=== PATIENT | female | born 1975 | race Caucasian/White ===

== ENCOUNTER 2025-01-01 09:03 | Emergency (ER) | payer OTHER, SELFPAY ==
[2025-01-01 09:10] VITALS: BP 146/99
--- NOTE | 2025-01-01 11:26 | ED.SKININJ ---
HPI-Injury
General
Chief Complaint: Eye Problems
Source: patient
Exam Limitations: none
Time Seen by Provider: 01/01/25 10:54
Nursing documentation reviewed up to this point in time: agreed with
History of Present Illness-Injury
Initial Injury comments:
49 yo female w no significant PMHX presents for increasing swelling, right upper eyelid over past 5 days. It waxed and waned, is worse in the mornings and improved throughout the day. It seemed to be improving as of yesterday but today she awakened
with more swelling. Denies itching or pain. Denies fever/chills. Denies change in vision. No know exposures/new products.
Past History
Past History
ED Past Medical History: Other (Varicose veins, Phlebitis)
ED Past Surgical History: Gynecological
Social History
Tobacco: Non-smoker
Alcohol: None
Drug: None
Personal:
Living: with family
Employment: Employed (teacher)
Family History
Family History: Hypertension
Review of Systems
Review of Systems
Allergies reviewed?: Yes
All Other Systems: ROS reviewed and negative except as documented in HPI and ROS
Constitutional: Denies fever or chills
EENT: Reports other (no change in vision or eyeball symptoms)
ABD/GI: Denies nausea
Musculoskeletal: Reports no symptoms
Skin: Reports other (swelling right upper eyelid)
Neurological: Reports no symptoms
Phy Exam
Physical Exam
Physical Exam:
GENERAL: No acute distress. A&Ox3.
CONSTITUTIONAL: Afebrile.
EYES: clear, conjunctivae normal, lid everted, no lesions or FB. EOMs intact. No pain with eye movement. Right eyelid is mildly erythematous, puffy/swollen, eye opens completely
ENMT: moist mucus membranes, Pharynx nl
RESPIRATORY: Regular respirations, nonlabored, lungs clear.
CARDIOVASCULAR: Regular rate and rhythm, no murmurs, no rubs.
GI: Soft, nontender
MUSCULOSKELETAL: Moves with ease. Well perfused.
SKIN: Warm, dry, pink
PSYCH: Normal mood and affect. Well kept, interactive and appropriate
NEUROLOGIC: Awake, alert and oriented. No focal neurological deficits
Course
Vital Signs
Initial and Last Documented VS:
Initial Vital Signs
Temp Pulse Resp BP Pulse Ox
98.7 F 90 16 146/99 98
01/01/25 09:10 01/01/25 09:10 01/01/25 09:10 01/01/25 09:10 01/01/25 09:10
Last Documented Vital Signs
Temp Pulse Resp BP Pulse Ox
98.7 F 90 16 146/99 98
01/01/25 09:10 01/01/25 09:10 01/01/25 09:10 01/01/25 09:10 01/01/25 09:10
MDM/Problems Addressed
Differential Diagnosis Includes:
blocked meibomian gland, chalazion, posterior vs anterior blepharitis, orbital cellulitis, pink eye
MDM/Problems Addressed:
49 yo female w no significant PMHX presents for increasing swelling, right upper eyelid over past 5 days. It waxed and waned, is worse in the mornings and improved throughout the day. It seemed to be improving as of yesterday but today she awakened
with more swelling. Denies itching or pain. Denies fever/chills. Denies change in vision. No know exposures/new products.
NAD, afebrile
No pain with eye movement, no change in vision, symptoms wax and wane, no sty,
History and exam consistent with anterior blepharitis
*Critical Care Note
Total Time (30-74mins, 75-104mins- exclusive of procedures): Not Applicable
ED Attending Note
-
Portions of this chart may have been created with voice recognition software.� Occasional wrong word or��sound alike� substitutions may have occurred due to the inherent limitations of voice recognition software.
Discharge Plan
Departure
Patient Disposition: Home (Routine Discharge)
Date of Disposition: 01/01/25
Time of Disposition: 11:29
Patient with high blood pressure during this ER visit?: No
Condition: Good
Discharge Problem:
Anterior blepharitis of right upper eyelid
Instructions: Blepharitis
Prescriptions:
New
erythromycin 5 mg/gram (0.5 %) ointment
0.5 inch ophthalmic (eye) BID Qty: 50 0RF
No Action
apixaban [Eliquis] 2.5 MG tablet
2.5 mg PO BID 30 Days Qty: 60 0RF
ferrous sulfate [FeroSul] 325 MG tablet
325 mg PO BID 30 Days Qty: 60 0RF
Referrals:
Major Santos MD [Family Provider] -
Kenton Kenyon MD [Active] - As needed
Activity Restrictions/Additional Instructions:
As we discussed, I am treating you for 'blepharitis' common causes are bacteria, build up of stress, rosacea, eye lid mites, products you may be sensitive to.
If it is not much better in a week, see the eye doctor for evaluation.
Warm compresses, eyelid massage and warm water rinse daily. Avoid rubbing the eyes otherwise.
Do not use makeup or other products on this lid.
I sent a prescription to your pharmacy for erythromycin ointment to apply twice a day a small ribbon to lower lid and rub some on the outer upper lid
Interventions
Interventions:
*Risk Screen - Suicide Last Done: 01/01/25 12:09
*General Assessment Last Done: 01/01/25 12:09
*Neglect/Abuse Screening Last Done: 01/01/25 12:09
*Nursing Disposition Last Done: 01/01/25 12:09
Discharge Date and Time
Discharge Date/Time: 01/01/25 12:10
Print Language: UPPER SORBIAN
== END 2025-01-01 12:10 | disposition home or self-care (01) ==
LOC: EMR 09:03
PROVIDERS: EMERGENCY PHYSICIAN Emergency Medicine; FAMILY PHYSICIAN Family Medicine
DX: H01.001 Unspecified blepharitis right upper eyelid (principal)
CPT/HCPCS: 99283